=== PATIENT | female | born 1945 | race Caucasian/White ===

== ENCOUNTER 2020-03-14 15:29 | Emergency (ER) | payer MEDICARE, SELFPAY ==
--- NOTE | 2020-03-14 16:07 | ED.FALL ---
HPI - Fall General Stated Complaint: knee pain Time Seen by Provider: 03/14/20 16:00 Source: patient Mode of arrival: EMS Limitations: no limitations
== END 2020-03-14 17:00 | disposition left against medical advice (07) ==
PROVIDERS: Emergency Provider Emergency Medicine
DX: Z53.8 Procedure and treatment not carried out for other reasons (principal)
CPT/HCPCS: 99199